=== PATIENT | male | born 1935 | race Caucasian/White ===

== ENCOUNTER 2018-07-29 10:59 | Emergency (ER) | payer MEDICARE, OTHER, SELFPAY ==
--- NOTE | 2018-07-29 11:05 | ED.SOB ---
HPI - SOB/Dyspnea <Emi Gibson PA-C - Last Filed: 07/29/18 19:42> General Chief Complaint: Shortness of Breath/Dyspnea Stated Complaint: Congestion/Wheezing Time Seen by Provider: 07/29/18 11:02 Source: patient Mode of arrival: ambulatory Limitations: no limitations History of Present Illness This 83-year-old male comes to ED secondary to cough and ?raspy breathing?. He states that he is here visiting from [place], and his daughter has had a cold. He thinks that he caught this, for the last 3 days he has had cough, chest congestion, and ?raspy breathing ?. He states that he has had ongoing nasal congestion and postnasal drip which he attributes to his allergies being worse in this climate as he has had that for several weeks while visiting. He denies any fevers. He denies any new chest pain. He states he always feels short of breath but this is completely unchanged from baseline. He denies any increased swelling in his extremities (has some at baseline and states that he takes Lasix as needed, last a couple of days ago). He denies any new pain in his extremities. He denies any abdominal pain, nausea, vomiting or other new complaints on systems review. He has an extensive cardiac history and states ?I did not want to get into this? but was flown to another ED in [place] on Friday night due to anginal pain and was evaluated. He states he took his nitroglycerin and it resolved. He has not had pain since then. Related Data Home Medications Medication Instructions Recorded Confirmed aspirin 325 mg PO QDAY #0 09/28/15 carvedilol [Coreg] 6.25 mg PO BID #0 09/28/15 clopidogrel [Plavix] 75 mg PO QDAY #0 tab 09/28/15 diclofenac sodium [Solaraze] 1 jose de jesus TOPICAL PRN PRN #0 09/28/15 famotidine [Pepcid] 20 mg PO QDAYP PRN #0 tab 09/28/15 losartan 50 mg PO QPM #0 09/28/15 simvastatin 20 mg PO QPM #0 09/28/15 sotalol [Sotalol AF] 80 mg PO BID #0 09/28/15 fluticasone propionate [Flonase 1 spray INTRANASAL QPM #0 07/13/17 Allergy Relief] isosorbide mononitrate 30 mg PO QPM #0 09/05/16 nitroglycerin [Nitrostat] 0.4 mg SUBLINGUAL PRN PRN #0 09/05/16 Previous Rx's Medication Instructions Recorded furosemide [Lasix] 20 mg PO QDAY 3 Days #0 tab 09/05/16 albuterol sulfate 2 puff INHALATION Q2-4H #8.5 gram 07/29/18 Allergies Allergy/AdvReac Type Severity Reaction Status Date / Time ofloxacin [From FLOXIN] AdvReac Severe TENDON Unverified 06/04/17 12:55 DAMAGE. 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 HEAD: No sinus TTP. EYES: PERRL, EOMI. ORAL CAVITY: Normal oropharynx. THROAT: No erythema or exudate, PND noted NECK/THYROID: Neck supple, full range of motion, no cervical lymphadenopathy. LUNGS: Coarse breath sounds with generalized wheezes and increased upper airway noise, no crackles, rare cough on exam HEART: RRR without murmur, nl S1, S2, no S3 or S4. ABDOMEN: Soft, nontender, nondistended, +bowel sounds x4 quadrants EXTREMITIES: Mild symmetric lower extremity pitting, no calf tenderness Initial Vital Signs Initial Vital Signs: Vital Signs Temperature 97.4 F L 07/29/18 11:07 Pulse Rate 54 L 07/29/18 11:07 Respiratory Rate 24 07/29/18 11:07 Blood Pressure 134/68 07/29/18 11:07 Pulse Oximetry 94 07/29/18 11:07 <Mary Mccarthy MD - Last Filed: 07/29/18 20:10> Initial Vital Signs Initial Vital Signs: Vital Signs Temperature 97.4 F L 07/29/18 11:07 Pulse Rate 54 L 07/29/18 11:07 Respiratory Rate 24 07/29/18 11:07 Blood Pressure 134/68 07/29/18 11:07 Pulse Oximetry 94 07/29/18 11:07 Course <Emi Gibson PA-C - Last Filed: 07/29/18 19:42> Additional Information: Patient appears quite well today on exam, walked in without difficulty. This appears to have started well after his visit for an episode of angina on Friday, and he has had typical cold an allergy symptoms with congestion, postnasal drip, and now with new cough after being exposed. Explained I suspect viral upper respiratory infection on top of his already symptomatic allergy, and probably has some mild CHF as well as he does not take his furosemide daily. I asked him to take 2 tablets today in case this is contributing, as well as treating for reactive airways since he had some improvement after nebulizer treatment here. Also start antihistamine in addition to Flonase. He agreed to return if any acutely worsening symptoms, otherwise will return home tonight and agrees to follow up with his PCP in the next day or 2. Reviewed findings with attending Dr. Mccarthy who is agreeable with plan Orders Ordered: ED Orders 07/29/18 11:13 XR chest 2V Stat 07/29/18 11:14 Consult to Respiratory Therapy Evaluate & Treat 07/29/18 11:43 B Type Natriuretic Peptide Stat Complete Blood Count AUTO DIFF Stat Comprehensive Metabolic Panel Stat Discontinued Medications Albuterol (Ventolin) 2.5 mg INH NOW ONE Stop: 07/29/18 11:29 Last Admin: 07/29/18 11:33 Dose: 2.5 mg Albuterol/Ipratropium (Duoneb) 3 ml INH NOW ONE Stop: 07/29/18 11:29 Last Admin: 07/29/18 11:33 Dose: 3 ml Vital Signs - 8 hr 07/29/18 13:09 Pulse Rate 22 L Respiratory Rate 17 Blood Pressure 132/72 Pulse Oximetry 96 <Mary Mccarthy MD - Last Filed: 07/29/18 20:10> Orders Ordered: ED Orders 07/29/18 11:13 XR chest 2V Stat 07/29/18 11:14 Consult to Respiratory Therapy Evaluate & Treat 07/29/18 11:43 B Type Natriuretic Peptide Stat Complete Blood Count AUTO DIFF Stat Comprehensive Metabolic Panel Stat Discontinued Medications Albuterol (Ventolin) 2.5 mg INH NOW ONE Stop: 07/29/18 11:29 Last Admin: 07/29/18 11:33 Dose: 2.5 mg Albuterol/Ipratropium (Duoneb) 3 ml INH NOW ONE Stop: 07/29/18 11:29 Last Admin: 07/29/18 11:33 Dose: 3 ml Vital Signs - 8 hr 07/29/18 13:09 Pulse Rate 22 L Respiratory Rate 17 Blood Pressure 132/72 Pulse Oximetry 96 MDM - SOB/Dyspnea <Emi Gibson PA-C - Last Filed: 07/29/18 19:42> Lab Data Result diagrams: 07/29/18 11:43 07/29/18 11:43 Lab Results 07/29/18 07/29/18 Range/Units 11:43 11:43 WBC 5.1 (4.5-11.0) X10^3/uL RBC 4.10 L (4.5-5.9) X10^6/uL Hgb 13.4 L (13.5-17.5) g/dL Hct 40.7 L (41-53) % MCV 99.2 (80-100) fL MCH 32.6 (26-34) PG MCHC 32.9 (30-36) % RDW 15.1 H (11.6-14.8) % Plt Count 132 L (150-400) X10^3/uL Neut % (Auto) 60.8 (50-75) % Lymph % (Auto) 22.3 L (25-40) % [place] % (Auto) 11.1 (3-14) % Eos % (Auto) 5.1 H (2-4) % Baso % (Auto) 0.7 (0-2) % Neut # (Auto) 3100 (9305-8724) /uL Lymph # (Auto) 1100 (5376-0016) /uL [place] # (Auto) 600 (0-900) /uL Eos # (Auto) 300 (0-450) /uL Baso # (Auto) 0 (0-100) /uL Sodium 141 (137-145) mmol/L Potassium 4.3 (3.4-5.1) mmol/L Chloride 104 (98-107) mmol/L Carbon Dioxide 28 (22-32) mmol/L BUN 17 (9-20) mg/dL Creatinine 0.90 (0.66-1.25) mg/dL Estimated GFR > 60.0 (>60) mL/min BUN/Creatinine Ratio 18.9 (6-22) Glucose 97 (80-110) mg/dL Calcium 9.2 (8.4-10.2) mg/dL Total Bilirubin 0.9 (0.2-1.3) mg/dL AST 43 (17-59) IU/L ALT 41 (21-72) IU/L Alkaline Phosphatase 96 (38-126) U/L B-Natriuretic Peptide 507 H (<100) Total Protein 7.6 (6.3-8.2) g/dL Albumin 4.2 (3.5-5.0) g/dL Globulin 3.4 (1.7-4.1) g/dL Albumin/Globulin Ratio 1.2 (1.0-2.8) Imaging Data Chest x-ray: Radiologist's impression: [address] [address] XRay Report Signed Patient: Yuri Kennedy RMR#: [id number] : 6Acct:[id number] Age/Sex: 83 / MDate of Service: 07/29/18 Loc: ED Accession Number: [id number] Procedure: XR chest 2V Ordering Provider: Emi Gibson P.A-C PROCEDURE: XR CHEST 2V INDICATIONS: wheezing, cough TECHNIQUE: 2 views of the chest were acquired. [facility]. FINDINGS: Surgical changes and devices: Pacemaking device and leads in normal position, prior CABG is likely present in this patient given the pattern of surgical clips and sternotomy wires.. Lungs and pleura: Lungs are mildly edematous. No pleural effusions or pneumothorax. Mediastinum: Mediastinal contours are normal. Heart size is at the upper limits of normal. Bones and chest wall: No suspicious bony abnormalities. Soft tissues appear unremarkable. IMPRESSION: Suspect acute exacerbation of mild chronic CHF. Prior CABG, cardiac pacemaking device and dual chamber leads normal. Dictated by: Flo De La Torre M.D. on 07/29/2018 at 11:41 Approved by: Flo De La Torre M.D. on 07/29/2018 at 11:42 <Mary Mccarthy MD - Last Filed: 07/29/18 20:10> Lab Data Lab Results 07/29/18 07/29/18 Range/Units 11:43 11:43 WBC 5.1 (4.5-11.0) X10^3/uL RBC 4.10 L (4.5-5.9) X10^6/uL Hgb 13.4 L (13.5-17.5) g/dL Hct 40.7 L (41-53) % MCV 99.2 (80-100) fL MCH 32.6 (26-34) PG MCHC 32.9 (30-36) % RDW 15.1 H (11.6-14.8) % Plt Count 132 L (150-400) X10^3/uL Neut % (Auto) 60.8 (50-75) % Lymph % (Auto) 22.3 L (25-40) % [place] % (Auto) 11.1 (3-14) % Eos % (Auto) 5.1 H (2-4) % Baso % (Auto) 0.7 (0-2) % Neut # (Auto) 3100 (3388-7306) /uL Lymph # (Auto) 1100 (7592-7705) /uL [place] # (Auto) 600 (0-900) /uL Eos # (Auto) 300 (0-450) /uL Baso # (Auto) 0 (0-100) /uL Sodium 141 (137-145) mmol/L Potassium 4.3 (3.4-5.1) mmol/L Chloride 104 (98-107) mmol/L Carbon Dioxide 28 (22-32) mmol/L BUN 17 (9-20) mg/dL Creatinine 0.90 (0.66-1.25) mg/dL Estimated GFR > 60.0 (>60) mL/min BUN/Creatinine Ratio 18.9 (6-22) Glucose 97 (80-110) mg/dL Calcium 9.2 (8.4-10.2) mg/dL Total Bilirubin 0.9 (0.2-1.3) mg/dL AST 43 (17-59) IU/L ALT 41 (21-72) IU/L Alkaline Phosphatase 96 (38-126) U/L B-Natriuretic Peptide 507 H (<100) Total Protein 7.6 (6.3-8.2) g/dL Albumin 4.2 (3.5-5.0) g/dL Globulin 3.4 (1.7-4.1) g/dL Albumin/Globulin Ratio 1.2 (1.0-2.8) Discharge Plan Departure Patient Disposition: Home Clinical Impression: Environmental allergies Upper respiratory infection Qualifiers: URI type: unspecified viral URI Qualified Code(s): J06.9 - Acute upper respiratory infection, unspecified Congestive heart failure Qualifiers: Heart failure type: unspecified Heart failure chronicity: chronic Qualified Code(s): I50.9 - Heart failure, unspecified Mild reactive airways disease Qualifiers: Asthma persistence: intermittent Asthma complication type: with acute exacerbation Qualified Code(s): J45.21 - Mild intermittent asthma with (acute) exacerbation Discharge Date/Time: 07/29/18 13:10 Interventions: ED Discharge Assessment Last Done: 07/29/18 13:09 Instructions: DI for Viral Upper Respiratory Infection -- Adult, DI for Reactive Airway Disease-Adult Activity Restrictions/Additional Instructions: I suspect that your cough and wheeze are related to a cold type virus since your daughter was sick prior to onset of your symptoms. This is likely exacerbated by your ongoing allergies as well. I have sent a prescription for inhaler like the medicine we gave you in the breathing treatment here for you to use as needed, to [facility]. Please use that as often as needed for cough or wheeze. Please continue Mucinex. Continue your Flonase. You can also add [id number] Claritin 10 mg or Zyrtec 10 mg once daily to help with the postnasal drainage. In addition, you likely have a little bit of congestive heart failure that could be exacerbating your symptoms. Please take 2 of your furosemide tablet as soon as possible today, then continue 1 tablet daily and make sure you see your PCP in the next day or 2 after you get home for recheck. Please return here if you have any new or acutely worsening symptoms while you are still in town. Prescriptions: New albuterol sulfate 90 mcg/actuation HFA aerosol inhaler 2 puff INHALATION Q2-4H Qty: 8.5 RF: 0 No Action carvedilol [Coreg] 6.25 MG tablet 6.25 mg PO BID Qty: 0 RF: 0 losartan 50 MG tablet 50 mg PO QPM Qty: 0 RF: 0 sotalol [Sotalol AF] 80 MG tablet 80 mg PO BID Qty: 0 RF: 0 clopidogrel [Plavix] 75 MG tablet 75 mg PO QDAY Qty: 0 RF: 0 simvastatin 20 MG tablet 20 mg PO QPM Qty: 0 RF: 0 famotidine [Pepcid] 20 MG tablet 20 mg PO QDAYP PRNQty: 0 RF: 0 aspirin 325 MG tablet,delayed release (DR/EC) 325 mg PO QDAY Qty: 0 RF: 0 diclofenac sodium [Solaraze] 3 % gel 1 jose de jesus Topical PRN PRNQty: 0 RF: 0 isosorbide mononitrate 30 MG tablet extended release 24 hr 30 mg PO QPM Qty: 0 RF: 0 nitroglycerin [Nitrostat] 0.4 MG tablet, sublingual 0.4 mg Sublingual PRN PRNQty: 0 RF: 0 fluticasone propionate [Flonase Allergy Relief] 9.9 ML spray,suspension 1 spray Intranasal QPM Qty: 0 RF: 0 furosemide [Lasix] 20 MG tablet 20 mg PO QDAY 3 Days Qty: 0 RF: 0 Referrals: Giorgio Cote [Other]
[2018-07-29 11:07] VITALS: BP 134/68; PULSE 54; RESP 24; TEMP 36.3; O2SAT 94
--- NOTE | 2018-07-29 11:13 | DI.RAD.S_ITS ---
PROCEDURE: XR CHEST 2V INDICATIONS: wheezing, cough TECHNIQUE: 2 views of the chest were acquired. COMPARISON: [facility], , CHEST 1 VIEW, 09/05/2016, 11:20. FINDINGS: Surgical changes and devices: Pacemaking device and leads in normal position, prior CABG is likely present in this patient given the pattern of surgical clips and sternotomy wires.. Lungs and pleura: Lungs are mildly edematous. No pleural effusions or pneumothorax. Mediastinum: Mediastinal contours are normal. Heart size is at the upper limits of normal. Bones and chest wall: No suspicious bony abnormalities. Soft tissues appear unremarkable. IMPRESSION: Suspect acute exacerbation of mild chronic CHF. Prior CABG, cardiac pacemaking device and dual chamber leads normal. Dictated by: Flo De La Torre M.D. on 07/29/2018 at 11:41 Approved by: Flo De La Torre M.D. on 07/29/2018 at 11:42
--- NOTE | 2018-07-29 11:18 | ED_ITS ---
HPI - SOB/Dyspnea <Emi Gibson PA-C - Last Filed: 07/29/18 19:42> General Chief Complaint: Shortness of Breath/Dyspnea Stated Complaint: Congestion/Wheezing Time Seen by Provider: 07/29/18 11:02 Source: patient Mode of arrival: ambulatory Limitations: no limitations History of Present Illness This 83-year-old male comes to ED secondary to cough and ?raspy breathing?. He states that he is here visiting from [place], and his daughter has had a cold. He thinks that he caught this, for the last 3 days he has had cough, chest congestion, and ?raspy breathing ?. He states that he has had ongoing nasal congestion and postnasal drip which he attributes to his allergies being worse in this climate as he has had that for several weeks while visiting. He denies any fevers. He denies any new chest pain. He states he always feels short of breath but this is completely unchanged from baseline. He denies any increased swelling in his extremities (has some at baseline and states that he takes Lasix as needed, last a couple of days ago). He denies any new pain in his extremities. He denies any abdominal pain, nausea, vomiting or other new complaints on systems review. He has an extensive cardiac history and states ?I did not want to get into this? but was flown to another ED in [place] on night due to anginal pain and was evaluated. He states he took his nitroglycerin and it resolved. He has not had pain since then. Related Data Home Medications Medication Instructions Recorded Confirmed aspirin 325 mg PO QDAY #0 09/28/15 carvedilol [Coreg] 6.25 mg PO BID #0 09/28/15 clopidogrel [Plavix] 75 mg PO QDAY #0 tab 09/28/15 diclofenac sodium [Solaraze] 1 jose de jesus TOPICAL PRN PRN #0 09/28/15 famotidine [Pepcid] 20 mg PO QDAYP PRN #0 tab 09/28/15 losartan 50 mg PO QPM #0 09/28/15 simvastatin 20 mg PO QPM #0 09/28/15 sotalol [Sotalol AF] 80 mg PO BID #0 09/28/15 fluticasone propionate [Flonase 1 spray INTRANASAL QPM #0 09/05/16 Allergy Relief] isosorbide mononitrate 30 mg PO QPM #0 09/05/16 nitroglycerin [Nitrostat] 0.4 mg SUBLINGUAL PRN PRN #0 09/05/16 Previous Rx's Medication Instructions Recorded furosemide [Lasix] 20 mg PO QDAY 3 Days #0 tab 09/05/16 albuterol sulfate 2 puff INHALATION Q2-4H #8.5 gram 07/29/18 Allergies Allergy/AdvReac Type Severity Reaction Status Date / Time ofloxacin [From FLOXIN] AdvReac Severe TENDON Unverified 06/04/17 12:55 DAMAGE. 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 HEAD: No sinus TTP. EYES: PERRL, EOMI. ORAL CAVITY: Normal oropharynx. THROAT: No erythema or exudate, PND noted NECK/THYROID: Neck supple, full range of motion, no cervical lymphadenopathy. LUNGS: Coarse breath sounds with generalized wheezes and increased upper airway noise, no crackles, rare cough on exam HEART: RRR without murmur, nl S1, S2, no S3 or S4. ABDOMEN: Soft, nontender, nondistended, +bowel sounds x4 quadrants EXTREMITIES: Mild symmetric lower extremity pitting, no calf tenderness Initial Vital Signs Initial Vital Signs: Vital Signs Temperature 97.4 F L 07/29/18 11:07 Pulse Rate 54 L 07/29/18 11:07 Respiratory Rate 24 07/29/18 11:07 Blood Pressure 134/68 07/29/18 11:07 Pulse Oximetry 94 07/29/18 11:07 <Mary Mccarthy MD - Last Filed: 07/29/18 20:10> Initial Vital Signs Initial Vital Signs: Vital Signs Temperature 97.4 F L 07/29/18 11:07 Pulse Rate 54 L 07/29/18 11:07 Respiratory Rate 24 07/29/18 11:07 Blood Pressure 134/68 07/29/18 11:07 Pulse Oximetry 94 07/29/18 11:07 Course <Emi Gibson PA-C - Last Filed: 07/29/18 19:42> Additional Information: Patient appears quite well today on exam, walked in without difficulty. This appears to have started well after his visit for an episode of angina on Friday, and he has had typical cold an allergy symptoms with congestion, postnasal drip, and now with new cough after being exposed. Explained I suspect viral upper respiratory infection on top of his already symptomatic allergy, and probably has some mild CHF as well as he does not take his furosemide daily. I asked him to take 2 tablets today in case this is contributing, as well as treating for reactive airways since he had some improvement after nebulizer treatment here. Also start antihistamine in addition to Flonase. He agreed to return if any acutely worsening symptoms, otherwise will return home tonight and agrees to follow up with his PCP in the next day or 2. Reviewed findings with attending Dr. Mccarthy who is agreeable with plan Orders Ordered: ED Orders 07/29/18 11:13 XR chest 2V Stat 07/29/18 11:14 Consult to Respiratory Therapy Evaluate & Treat 07/29/18 11:43 B Type Natriuretic Peptide Stat Complete Blood Count AUTO DIFF Stat Comprehensive Metabolic Panel Stat Discontinued Medications Albuterol (Ventolin) 2.5 mg INH NOW ONE Stop: 07/29/18 11:29 Last Admin: 07/29/18 11:33 Dose: 2.5 mg Albuterol/Ipratropium (Duoneb) 3 ml INH NOW ONE Stop: 07/29/18 11:29 Last Admin: 07/29/18 11:33 Dose: 3 ml Vital Signs - 8 hr 07/29/18 13:09 Pulse Rate 22 L Respiratory Rate 17 Blood Pressure 132/72 Pulse Oximetry 96 <Mary Mccarthy MD - Last Filed: 07/29/18 20:10> Orders Ordered: ED Orders 07/29/18 11:13 XR chest 2V Stat 07/29/18 11:14 Consult to Respiratory Therapy Evaluate & Treat 07/29/18 11:43 B Type Natriuretic Peptide Stat Complete Blood Count AUTO DIFF Stat Comprehensive Metabolic Panel Stat Discontinued Medications Albuterol (Ventolin) 2.5 mg INH NOW ONE Stop: 07/29/18 11:29 Last Admin: 07/29/18 11:33 Dose: 2.5 mg Albuterol/Ipratropium (Duoneb) 3 ml INH NOW ONE Stop: 07/29/18 11:29 Last Admin: 07/29/18 11:33 Dose: 3 ml Vital Signs - 8 hr 07/29/18 13:09 Pulse Rate 22 L Respiratory Rate 17 Blood Pressure 132/72 Pulse Oximetry 96 MDM - SOB/Dyspnea <Emi Gibson PA-C - Last Filed: 07/29/18 19:42> Lab Data Result diagrams: 07/29/18 11:43 07/29/18 11:43 Lab Results 07/29/18 07/29/18 Range/Units 11:43 11:43 WBC 5.1 (4.5-11.0) X10^3/uL RBC 4.10 L (4.5-5.9) X10^6/uL Hgb 13.4 L (13.5-17.5) g/dL Hct 40.7 L (41-53) % MCV 99.2 (80-100) fL MCH 32.6 (26-34) PG MCHC 32.9 (30-36) % RDW 15.1 H (11.6-14.8) % Plt Count 132 L (150-400) X10^3/uL Neut % (Auto) 60.8 (50-75) % Lymph % (Auto) 22.3 L (25-40) % [place] % (Auto) 11.1 (3-14) % Eos % (Auto) 5.1 H (2-4) % Baso % (Auto) 0.7 (0-2) % Neut # (Auto) 3100 (1418-0352) /uL Lymph # (Auto) 1100 (0832-7340) /uL [place] # (Auto) 600 (0-900) /uL Eos # (Auto) 300 (0-450) /uL Baso # (Auto) 0 (0-100) /uL Sodium 141 (137-145) mmol/L Potassium 4.3 (3.4-5.1) mmol/L Chloride 104 (98-107) mmol/L Carbon Dioxide 28 (22-32) mmol/L BUN 17 (9-20) mg/dL Creatinine 0.90 (0.66-1.25) mg/dL Estimated GFR > 60.0 (>60) mL/min BUN/Creatinine Ratio 18.9 (6-22) Glucose 97 (80-110) mg/dL Calcium 9.2 (8.4-10.2) mg/dL Total Bilirubin 0.9 (0.2-1.3) mg/dL AST 43 (17-59) IU/L ALT 41 (21-72) IU/L Alkaline Phosphatase 96 (38-126) U/L B-Natriuretic Peptide 507 H (<100) Total Protein 7.6 (6.3-8.2) g/dL Albumin 4.2 (3.5-5.0) g/dL Globulin 3.4 (1.7-4.1) g/dL Albumin/Globulin Ratio 1.2 (1.0-2.8) Imaging Data Chest x-ray: Radiologist's impression: [address] [address] XRay Report Signed Patient: Yuri Kennedy RMR#: [id number] : 6Acct:[id number] Age/Sex: 83 / MDate of Service: 07/29/18 Loc: ED Accession Number: [id number] Procedure: XR chest 2V Ordering Provider: Emi Gibson P.A-C PROCEDURE: XR CHEST 2V INDICATIONS: wheezing, cough TECHNIQUE: 2 views of the chest were acquired. COMPARISON: [facility], CR, CHEST 1 VIEW, 09/05/2016, 11:20. FINDINGS: Surgical changes and devices: Pacemaking device and leads in normal position, prior CABG is likely present in this patient given the pattern of surgical clips and sternotomy wires.. Lungs and pleura: Lungs are mildly edematous. No pleural effusions or pneumothorax. Mediastinum: Mediastinal contours are normal. Heart size is at the upper limits of normal. Bones and chest wall: No suspicious bony abnormalities. Soft tissues appear unremarkable. IMPRESSION: Suspect acute exacerbation of mild chronic CHF. Prior CABG, cardiac pacemaking device and dual chamber leads normal. Dictated by: Flo De La Torre M.D. on 07/29/2018 at 11:41 Approved by: Flo De La Torre M.D. on 07/29/2018 at 11:42 <Mary Mccarthy MD - Last Filed: 07/29/18 20:10> Lab Data Lab Results 07/29/18 07/29/18 Range/Units 11:43 11:43 WBC 5.1 (4.5-11.0) X10^3/uL RBC 4.10 L (4.5-5.9) X10^6/uL Hgb 13.4 L (13.5-17.5) g/dL Hct 40.7 L (41-53) % MCV 99.2 (80-100) fL MCH 32.6 (26-34) PG MCHC 32.9 (30-36) % RDW 15.1 H (11.6-14.8) % Plt Count 132 L (150-400) X10^3/uL Neut % (Auto) 60.8 (50-75) % Lymph % (Auto) 22.3 L (25-40) % [place] % (Auto) 11.1 (3-14) % Eos % (Auto) 5.1 H (2-4) % Baso % (Auto) 0.7 (0-2) % Neut # (Auto) 3100 (1410-1594) /uL Lymph # (Auto) 1100 (2357-6637) /uL [place] # (Auto) 600 (0-900) /uL Eos # (Auto) 300 (0-450) /uL Baso # (Auto) 0 (0-100) /uL Sodium 141 (137-145) mmol/L Potassium 4.3 (3.4-5.1) mmol/L Chloride 104 (98-107) mmol/L Carbon Dioxide 28 (22-32) mmol/L BUN 17 (9-20) mg/dL Creatinine 0.90 (0.66-1.25) mg/dL Estimated GFR > 60.0 (>60) mL/min BUN/Creatinine Ratio 18.9 (6-22) Glucose 97 (80-110) mg/dL Calcium 9.2 (8.4-10.2) mg/dL Total Bilirubin 0.9 (0.2-1.3) mg/dL AST 43 (17-59) IU/L ALT 41 (21-72) IU/L Alkaline Phosphatase 96 (38-126) U/L B-Natriuretic Peptide 507 H (<100) Total Protein 7.6 (6.3-8.2) g/dL Albumin 4.2 (3.5-5.0) g/dL Globulin 3.4 (1.7-4.1) g/dL Albumin/Globulin Ratio 1.2 (1.0-2.8) Discharge Plan Departure Patient Disposition: Home Clinical Impression: Environmental allergies Upper respiratory infection Qualifiers: URI type: unspecified viral URI Qualified Code(s): J06.9 - Acute upper respiratory infection, unspecified Congestive heart failure Qualifiers: Heart failure type: unspecified Heart failure chronicity: chronic Qualified Code(s): I50.9 - Heart failure, unspecified Mild reactive airways disease Qualifiers: Asthma persistence: intermittent Asthma complication type: with acute exacerbation Qualified Code(s): J45.21 - Mild intermittent asthma with (acute) exacerbation Discharge Date/Time: 07/29/18 13:10 Interventions: ED Discharge Assessment Last Done: 07/29/18 13:09 Instructions: DI for Viral Upper Respiratory Infection -- Adult, DI for Reactive Airway Disease-Adult Activity Restrictions/Additional Instructions: I suspect that your cough and wheeze are related to a cold type virus since your daughter was sick prior to onset of your symptoms. This is likely exacerbated by your ongoing allergies as well. I have sent a prescription for inhaler like the medicine we gave you in the breathing treatment here for you to use as needed, to [facility]. Please use that as often as needed for cough or wheeze. Please continue Mucinex. Continue your Flonase. You can also add [id number] Claritin 10 mg or Zyrtec 10 mg once daily to help with the postnasal drainage. In addition, you likely have a little bit of congestive heart failure that could be exacerbating your symptoms. Please take 2 of your furosemide tablet as soon as possible today, then continue 1 tablet daily and make sure you see your PCP in the next day or 2 after you get home for recheck. Please return here if you have any new or acutely worsening symptoms while you are still in town. Prescriptions: New albuterol sulfate 90 mcg/actuation HFA aerosol inhaler 2 puff INHALATION Q2-4H Qty: 8.5 RF: 0 No Action carvedilol [Coreg] 6.25 MG tablet 6.25 mg PO BID Qty: 0 RF: 0 losartan 50 MG tablet 50 mg PO QPM Qty: 0 RF: 0 sotalol [Sotalol AF] 80 MG tablet 80 mg PO BID Qty: 0 RF: 0 clopidogrel [Plavix] 75 MG tablet 75 mg PO QDAY Qty: 0 RF: 0 simvastatin 20 MG tablet 20 mg PO QPM Qty: 0 RF: 0 famotidine [Pepcid] 20 MG tablet 20 mg PO QDAYP PRNQty: 0 RF: 0 aspirin 325 MG tablet,delayed release (DR/EC) 325 mg PO QDAY Qty: 0 RF: 0 diclofenac sodium [Solaraze] 3 % gel 1 jose de jesus Topical PRN PRNQty: 0 RF: 0 isosorbide mononitrate 30 MG tablet extended release 24 hr 30 mg PO QPM Qty: 0 RF: 0 nitroglycerin [Nitrostat] 0.4 MG tablet, sublingual 0.4 mg Sublingual PRN PRNQty: 0 RF: 0 fluticasone propionate [Flonase Allergy Relief] 9.9 ML spray,suspension 1 spray Intranasal QPM Qty: 0 RF: 0 furosemide [Lasix] 20 MG tablet 20 mg PO QDAY 3 Days Qty: 0 RF: 0 Referrals: Giorgio Cote [Other]
[2018-07-29 11:25] VITALS: PULSE 51; RESP 16; O2SAT 97
[2018-07-29 11:33] VITALS: PULSE 50; RESP 16; O2SAT 98
[2018-07-29] MEDS: ALBUTEROL/IPRATROPIUM 3 ML AMPUL INH (11:33)
[2018-07-29] MEDS: ALBUTEROL 2.5 MG/3 ML NEB (ADULT) INH (11:33)
[2018-07-29 11:52] LABS: Add Manual Diff / Slide Review NO; Basophils Absolute Auto 0 /uL (0-100); Basophils Percent Auto 0.7 % (0-2); Eosinophils Absolute Auto 300 /uL (0-450); Eosinophils Percent Auto 5.1 % (2-4); Hematocrit 40.7 % (41-53); Hemoglobin 13.4 g/dL (13.5-17.5); Lymphocytes Absolute Auto 1100 /uL (1100-4500); Lymphocytes Percent Auto 22.3 % (25-40); Mean Corpuscular HGB Conc 32.9 % (30-36); Mean Corpuscular Hemoglobin 32.6 PG (26-34); Mean Corpuscular Volume 99.2 fL (80-100); Monocytes Absolute Auto 600 /uL (0-900); Monocytes Percent Auto 11.1 % (3-14); Neutrophils Absolute Auto 3100 /uL (1500-7000); Neutrophils Percent Auto 60.8 % (50-75); Platelet Count 132 X10^3/uL (150-400); Red Cell Distribution Width 15.1 % (11.6-14.8); White Blood Cell Count 5.1 X10^3/uL (4.5-11.0)
[2018-07-29 12:03] LABS: Alanine Aminotransferase 41 IU/L (21-72); Albumin 4.2 g/dL (3.5-5.0); Albumin Globulin Ratio 1.2 (1.0-2.8); Alkaline Phosphatase 96 U/L (38-126); Aspartate Aminotransferase 43 IU/L (17-59); BUN Creatinine Ratio 18.9 (6-22); Bilirubin Total 0.9 mg/dL (0.2-1.3); Blood Urea Nitrogen 17 mg/dL (9-20); Calcium 9.2 mg/dL (8.4-10.2); Carbon Dioxide 28 mmol/L (22-32); Chloride 104 mmol/L (98-107); Estimated Glomerular Filt Rate > 60.0 mL/min (>60); Globulin 3.4 g/dL (1.7-4.1); Glucose 97 mg/dL (80-110); HEMOLYSIS < 15 (0-50); Potassium 4.3 mmol/L (3.4-5.1); Sodium 141 mmol/L (137-145); Total Protein 7.6 g/dL (6.3-8.2)
[2018-07-29 12:04] VITALS: BP 132/63; PULSE 56; RESP 17; O2SAT 99
[2018-07-29 12:13] LABS: B Type Natriuretic Peptide 507 (<100)
[2018-07-29 13:09] VITALS: BP 132/72; PULSE 22; RESP 17; O2SAT 96
== END 2018-07-29 13:10 | disposition home or self-care (01) ==
PROVIDERS: Emergency Provider Internal Medicine
DX: I50.9 Heart failure, unspecified (principal); J45.21 Mild intermittent asthma with (acute) exacerbation; Z91.09 Other allergy status, other than to drugs and biological substances; Z95.1 Presence of aortocoronary bypass graft; Z95.0 Presence of cardiac pacemaker
CPT/HCPCS: 36415; 71046; 80053; 83880; 85025; 94640; 99282; 99284; J7613

== ENCOUNTER 2018-09-13 09:02 | Emergency (ER) | payer MEDICARE, OTHER, SELFPAY ==
[2018-09-13 09:17] VITALS: BP 123/77; PULSE 58; RESP 16; TEMP 36.3; O2SAT 96; BMI 29.7
--- NOTE | 2018-09-13 09:22 | DI.RAD.S_ITS ---
PROCEDURE: XR ACUTE ABDOMEN SERIES INDICATIONS: Abdominal pain, LLQ TECHNIQUE: One view chest and two views of the abdomen were acquired. COMPARISON: [facility], CR, XR CHEST 2V, 07/29/2018, 11:24. FINDINGS: Surgical changes and devices: Patient is status post median sternotomy. Cardiac pacer is unchanged. Chest: Lungs are clear. Heart size is normal. No pleural effusions. No pneumoperitoneum. Abdomen: Bowel gas pattern is normal. No suspicious calcifications. Visualized solid organ contours appear normal. Bones: No suspicious bony lesions. IMPRESSION: No acute cardiopulmonary findings. Dictated by: Maryellen Moreau M.D. on 09/13/2018 at 8:51 Approved by: Maryellen Moreau M.D. on 09/13/2018 at 8:51
[2018-09-13] MEDS: SODIUM CHLORIDE 0.9% 1,000 ML 150 ML IV (09:35)
[2018-09-13 09:36] LABS: Add Manual Diff / Slide Review NO; Basophils Absolute Auto 100 /uL (0-100); Basophils Percent Auto 0.8 % (0-2); Eosinophils Absolute Auto 200 /uL (0-450); Hemoglobin 13.2 g/dL (13.5-17.5); Lymphocytes Absolute Auto 1700 /uL (1100-4500); Lymphocytes Percent Auto 22.5 % (25-40); Mean Corpuscular Hemoglobin 32.6 PG (26-34); Mean Corpuscular Volume 98.7 fL (80-100); Monocytes Absolute Auto 700 /uL (0-900); Monocytes Percent Auto 9.5 % (3-14); Neutrophils Absolute Auto 4800 /uL (1500-7000); Neutrophils Percent Auto 64.2 % (50-75); Platelet Count 141 X10^3/uL (150-400); Red Blood Cell Count 4.05 X10^6/uL (4.5-5.9); Red Cell Distribution Width 15.6 % (11.6-14.8); White Blood Cell Count 7.5 X10^3/uL (4.5-11.0)
--- NOTE | 2018-09-13 09:37 | ED.ABDPAIN ---
HPI - Abdominal Pain General Chief Complaint: Abdominal Pain Stated Complaint: Abd pain Lt side Time Seen by Provider: 09/13/18 09:09 Source: patient and family Mode of arrival: ambulatory Limitations: no limitations History of Present Illness HPI narrative: 83-year-old male nonsmoker with cardiac history presents with left lower quadrant pain that reminds him of diverticulitis. It started off yesterday with generalized abdominal discomfort and tonight is a more persistent left lower quadrant pain. He denies any radiation. He states it is worse when he moves and improves with rest. He denies fever, chills nor nausea or vomiting. He denies any injury. MD complaint: abdominal pain Onset (ago): day(s) Pain Consistency: constant Location: LLQ Severity: moderate Quality: cramping and aching Radiation: none Migration to: no migration Relieving factors: rest Exacerbating factors: movement Associated symptoms: denies other symptoms Related Data Home Medications Medication Instructions Recorded Confirmed aspirin 325 mg PO QDAY #0 09/28/15 carvedilol [Coreg] 6.25 mg PO BID #0 09/28/15 clopidogrel [Plavix] 75 mg PO QDAY #0 tab 09/28/15 diclofenac sodium [Solaraze] 1 jose de jesus TOPICAL PRN PRN #0 09/28/15 famotidine [Pepcid] 20 mg PO QDAYP PRN #0 tab 09/28/15 losartan 50 mg PO QPM #0 09/28/15 simvastatin 20 mg PO QPM #0 09/28/15 sotalol [Sotalol AF] 80 mg PO BID #0 09/28/15 fluticasone propionate [Flonase 1 spray INTRANASAL QPM #0 09/05/16 Allergy Relief] isosorbide mononitrate 30 mg PO QPM #0 09/05/16 nitroglycerin [Nitrostat] 0.4 mg SUBLINGUAL PRN PRN #0 09/05/16 Previous Rx's Medication Instructions Recorded furosemide [Lasix] 20 mg PO QDAY 3 Days #0 tab 09/05/16 albuterol sulfate 2 puff INHALATION Q2-4H #8.5 gram 07/29/18 ciprofloxacin HCl 500 mg PO Q12H #20 tab 09/13/18 hydrocodone-acetaminophen 1 tab PO Q4-6H PRN #10 tab 09/13/18 metronidazole [Flagyl] 500 mg PO TID #30 tab 09/13/18 ondansetron HCl [Zofran] 4 mg PO Q6-8H PRN #20 tab 09/13/18 Allergies Allergy/AdvReac Type Severity Reaction Status Date / Time ofloxacin [From FLOXIN] AdvReac Severe TENDON Verified 09/13/18 09:17 DAMAGE. Review of Systems Constitutional Denies chills, Denies fever(s), Denies lethargy and Denies weakness Eyes Denies change in vision, Denies eye discharge, Denies irritation and Denies loss of vision ENT Ears, Nose, Mouth, and Throat: Denies change in voice, Denies neck pain and Denies sore throat Cardiovascular Denies chest pain, Denies irregular heart rhythm, Denies lightheadedness, Denies palpitations, Denies dyspnea, Denies dyspnea on exertion and Denies orthopnea Respiratory Denies cough, Denies dyspnea, Denies dyspnea on exertion and Denies wheezing Gastrointestinal Gastrointestinal: Reports abdominal pain, Denies change in bowel habits, Denies diarrhea, Denies nausea and Denies vomiting Genitourinary Denies hematuria, Denies flank pain, Denies urinary incontinence and Denies urinary urgency Musculoskeletal Denies neck pain Integumentary/Breasts Denies pruritus, Denies erythema, Denies rash and Denies wounds Neurologic Denies confusion, Denies loss of vision and Denies weakness Psychiatric Denies anxiety, Denies confusion, Denies depression, Denies homicidal ideation and Denies suicidal ideation Endocrine Denies palpitations Hematologic/Lymphatic Denies easy bruising Allergic/Immunologic Denies wheezing PFSH Medical History CAD (coronary artery disease) (Chronic) CHF (congestive heart failure) (Chronic) H/O: HTN (hypertension) (Chronic) Hyperlipidemia (Chronic) Pollen allergies (Chronic) Surgical History History of heart artery stent (Resolved) 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 Normocephalic. No temporal or scalp tenderness. EYES: Pupils equal round and reactive. Extraocular motions intact. No scleral icterus. No injection or drainage. ENT: Nose without bleeding, purulent drainage or septal hematoma. Throat without erythema, tonsillar hypertrophy or exudate. Uvula midline. Airway patent. NECK: Trachea midline. No JVD or lymphadenopathy. Supple, nontender, no meningeal signs. CARDIOVASCULAR: Regular rate and rhythm without murmurs, gallops, or rubs. RESPIRATORY: Clear to auscultation. Breath sounds equal bilaterally. No wheezes, rales, or rhonchi. GASTROINTESTINAL: Abdomen soft, tender in the left lower quadrant, nondistended. No hepato-splenomegaly, or palpable masses. No guarding. EXTREMITIES: No clubbing, cyanosis, or edema. No joint tenderness, effusion, or edema noted. BACK: Nontender without deformity or crepitance. No flank tenderness. NEURO: AOx3. SKIN: No rash or erythema. Initial Vital Signs Initial Vital Signs: Vital Signs Temperature 97.3 F L 09/13/18 09:17 Pulse Rate 58 L 09/13/18 09:17 Respiratory Rate 16 09/13/18 09:17 Blood Pressure 123/77 09/13/18 09:17 Pulse Oximetry 96 09/13/18 09:17 Course Orders Ordered: ED Orders 09/13/18 09:15 Urine Culture Stat Urine Microscopic Stat 09/13/18 09:22 XR acute abdomen series Stat 09/13/18 09:23 Complete Blood Count AUTO DIFF Stat Comprehensive Metabolic Panel Stat Lipase Stat 09/13/18 10:08 CT abdomen pelvis w con Stat Discontinued Medications Sodium Chloride (Normal Saline 0.9%) 1,000 mls @ 150 mls/hr IV CONT SERGE Last Infusion: 09/13/18 12:06 Dose: 0 mls/hr Admin: 09/13/18 09:35 Dose: 150 mls/hr Consultations Consultation #1: discussion with urology at regarding UTI in presence of 6mm Right Sided UVJ. Given lack of R sided symptoms, absence of systemic findings, and no hydro ureter or hydronephrosis on imaging this is unlikely to be playing a specific role in today's presentation. Urology and I sure the opinion that a appropriate return precautions are indicated in this patient but no urologic procedure or intervention is indicated at this time Vital Signs - 8 hr 09/13/18 09:17 09/13/18 09:55 09/13/18 10:57 Temperature 97.3 F L Pulse Rate 58 L 51 L 50 L Respiratory Rate 16 14 13 Blood Pressure 123/77 Blood Pressure [Right Arm] 111/60 106/61 Pulse Oximetry 96 93 92 09/13/18 11:52 Temperature Pulse Rate 50 L Respiratory Rate 13 Blood Pressure Blood Pressure [Right Arm] 121/58 L Pulse Oximetry 95 MDM - Abdominal Pain Lab Data Result diagrams: 09/13/18 09:23 09/13/18 09:23 Lab Results 09/13/18 09/13/18 09/13/18 Range/Units 09:15 09:23 09:23 WBC 7.5 (4.5-11.0) X10^3/uL RBC 4.05 L (4.5-5.9) X10^6/uL Hgb 13.2 L (13.5-17.5) g/dL Hct 40.0 L (41-53) % MCV 98.7 (80-100) fL MCH 32.6 (26-34) PG MCHC 33.0 (30-36) % RDW 15.6 H (11.6-14.8) % Plt Count 141 L (150-400) X10^3/uL Neut % (Auto) 64.2 (50-75) % Lymph % (Auto) 22.5 L (25-40) % Tyrrell % (Auto) 9.5 (3-14) % Eos % (Auto) 3.0 (2-4) % Baso % (Auto) 0.8 (0-2) % Neut # (Auto) 4800 (3794-1998) /uL Lymph # (Auto) 1700 (5753-2246) /uL Tyrrell # (Auto) 700 (0-900) /uL Eos # (Auto) 200 (0-450) /uL Baso # (Auto) 100 (0-100) /uL Sodium 138 (137-145) mmol/L Potassium 4.1 (3.4-5.1) mmol/L Chloride 104 (98-107) mmol/L Carbon Dioxide 26 (22-32) mmol/L BUN 19 (9-20) mg/dL Creatinine 0.70 (0.66-1.25) mg/dL Estimated GFR > 60.0 (>60) mL/min BUN/Creatinine Ratio 27.1 H (6-22) Glucose 107 (80-110) mg/dL Calcium 9.4 (8.4-10.2) mg/dL Total Bilirubin 1.4 H (0.2-1.3) mg/dL AST 26 (17-59) IU/L ALT 22 (21-72) IU/L Alkaline Phosphatase 99 (38-126) U/L Total Protein 7.6 (6.3-8.2) g/dL Albumin 4.2 (3.5-5.0) g/dL Globulin 3.4 (1.7-4.1) g/dL Albumin/Globulin Ratio 1.2 (1.0-2.8) Lipase 37 (23-300) U/L Urine RBC 1-5/hpf (0-5/HPF) Urine WBC 10-30/hpf H (0-5/HPF) Ur Squamous Epith Cells 1-5 /hpf (0-5/HPF) Amorphous Sediment 1+ Urine Bacteria Moderate (10-30) H (None) Ur Culture Indicated? Specimen cultured Point of care testing: Urine Dip Bedside Urine Glucose Negative Bedside Urine Bilirubin + 1 Bedside Urine Ketone - Negative Urine Specific [place] 1.020 Bedside Urine Occult Blood +/- Bedside Urine pH 6.0 Bedside Urine Protein + 30 Bedside Urine Urobilinogen +/- 1mg Bedside Urine Nitrite - Negative Bedside Urine Leukocytes + 70 Esterase Imaging Data Abdominal x-ray: Radiologist's impression: [address] [address] XRay Report Signed Patient: Yuri Kennedy RMR#: [id number] : 6Acct:[id number] Age/Sex: 83 / MDate of Service: 09/13/18 Loc: ED Accession Number: [id number] Procedure: XR acute abdomen series Ordering Provider: Aj Baldwin D.O. PROCEDURE: XR ACUTE ABDOMEN SERIES INDICATIONS: Abdominal pain, LLQ TECHNIQUE: One view chest and two views of the abdomen were acquired. COMPARISON: [facility], CR, XR CHEST 2V, 07/29/2018, 11:24. FINDINGS: Surgical changes and devices: Patient is status post median sternotomy. Cardiac pacer is unchanged. Chest: Lungs are clear. Heart size is normal. No pleural effusions. No pneumoperitoneum. Abdomen: Bowel gas pattern is normal. No suspicious calcifications. Visualized solid organ contours appear normal. Bones: No suspicious bony lesions. IMPRESSION: No acute cardiopulmonary findings. Dictated by: Maryellen Moreau M.D. on 09/13/2018 at 8:51 Approved by: Maryellen Moreau M.D. on 09/13/2018 at 8:51 CT scan - abdomen: Radiologist's impression: [address] [address] [address] Scan Report Signed Patient: Yuri Kennedy RMR#: [id number] : 6Acct:[id number] Age/Sex: 83 / MDate of Service: 09/13/18 Loc: ED Accession Number: [id number] Procedure: CT abdomen pelvis w con Ordering Provider: Aj Baldwin D.O. PROCEDURE: CT ABDOMEN PELVIS W CON INDICATIONS: severe LLQ pain, UTI, stone? tics? TECHNIQUE: After the administration of intravenous contrast, 5 mm thick sections acquired from the diaphragm to the symphysis. 5 mm coronal and sagittal reformats were acquired. For radiation dose reduction, the following was used: automated exposure control, adjustment of mA and/or kV according to patient size. COMPARISON: None. FINDINGS: Image quality: Excellent. ABDOMEN: Lung bases: Platelike atelectasis is present at the right lung base. The lung bases are otherwise clear. The heart is mildly enlarged. No pericardial effusion. Heart size is normal. Solid organs: Liver is normal in size and enhancement. Gallbladder is unremarkable. Biliary system is non dilated. Pancreas enhances normally. Spleen is normal in size and enhancement. No adrenal nodules. Low-density cystic lesions are present within the right kidney suggesting the presence of simple renal cysts. Cortical scarring and calcification is present within the midpole of the right kidney suggesting prior infection or infarction. There are bilateral nonobstructing renal calculi. The largest stone on the right measures 4 mm in diameter. The largest stone on the left is in the lower pole and has a staghorn appearance and measures 1.4 cm in diameter. 2 other staghorn calculi are present within the left kidney greater the 1 cm diameter. Nonobstructing calculi are also present within the dilated left renal pelvis. The bilateral ureters are nondilated. A 6 mm calculus is present within the distal right ureter at the ureterovesicular junction (series 2, image 76). No left ureteral calculi visualized. Peritoneum and bowel: Bowel loops demonstrate normal wall thickness and caliber. There is a small gas filled duodenal diverticulum at the third portion of the duodenum. The appendix is thin walled and gas filled. Multiple small appendicoliths are also present within the appendix. There extensive sigmoid colon diverticula outpouchings. Focal pericolonic fat stranding is present within the superior aspect of the descending colon which may represent mild inflammatory changes. No free fluid or air. Nodes and vessels: No retroperitoneal or mesenteric adenopathy by size criteria. Dense atheromatous calcifications are present throughout the abdominal aorta. The lateral diameter of the abdominal aorta measures 3.2 cm in maximum diameter. Miscellaneous: No ventral hernias. PELVIS: Genitourinary: The bladder is partially fluid-filled. Multiple bladder diverticula are noted within the posterior bladder and along the lateral bell. No bladder calculi. Miscellaneous: No inguinal adenopathy. There is a small right and a moderate left fat-containing inguinal hernia. Bones: No suspicious bony lesions. No vertebral body compression fractures. IMPRESSION: 1. Bilateral nonobstructing nephrolithiasis. Multiple calculi within the left kidney has a staghorn appearance and measure greater than 1 cm diameter. 2. Mild to moderate left hydronephrosis and a markedly dilated left renal pelvis without hydroureter suggesting ureteropelvic obstruction. This does not appear to be secondary to an obstructing calculus within the pelvis. 3. Distal right ureterolithiasis at the ureterovesicular junction without right hydronephrosis or hydroureter. 4. Extensive sigmoid colon diverticulosis and findings suggestive of a early nonperforated acute diverticulitis. 5. Normal appendix. The findings were discussed with Dr. Baldwin at 9:49 AM on . 6. 3.2 cm diameter abdominal aortic aneurysm. Dictated by: Maryellen Moreau M.D. on 09/13/2018 at 9:37 Approved by: Maryellen Moreau M.D. on 09/13/2018 at 9:50 MDM Narrative Medical decision making narrative: Multiple etiologies for patient's symptoms considered including: [Diverticulitis is the most likely diagnosis given history, physical and imaging, kidney stone on the left considered but thought less likely given lack of hematuria and findings on imaging.] Patient's symptoms improved or duration of stay with above-stated therapies. Findings and discharge diagnosis discussed with patient/family followed by verbalization of understanding Return precautions discussed with patient/family whom verbalize understanding. Discharge Plan Departure Patient Disposition: Home Clinical Impression: Diverticulitis, Acute UTI Discharge Date/Time: 09/13/18 12:02 Interventions: ED Discharge Assessment Last Done: 09/13/18 12:02 Instructions: DI for Diverticulitis Activity Restrictions/Additional Instructions: *You have been diagnosed with [acute diverticulitis, urinary tract infection] *What to do: *Take medications as directed *Follow up with your primary care provider in 2-3 days, call for an appointment. Let them know you were seen in the Emergency Department and that we ask that you be seen in follow up *Return to ER if you should have any new, worsening or concerning symptoms, such as [fever, shaking chills, right flank pain, vomiting or other bothersome symptoms] Prescriptions: New hydrocodone-acetaminophen 5-325 mg tablet 1 tab PO Q4-6H PRN (Reason: pain) Qty: 10 RF: 0 ondansetron HCl [Zofran] 4 mg tablet 4 mg PO Q6-8H PRN (Reason: nausea and vomiting) Qty: 20 RF: 0 metronidazole [Flagyl] 500 mg tablet 500 mg PO TID Qty: 30 RF: 0 ciprofloxacin HCl 500 mg tablet 500 mg PO Q12H Qty: 20 RF: 0 No Action carvedilol [Coreg] 6.25 MG tablet 6.25 mg PO BID Qty: 0 RF: 0 losartan 50 MG tablet 50 mg PO QPM Qty: 0 RF: 0 sotalol [Sotalol AF] 80 MG tablet 80 mg PO BID Qty: 0 RF: 0 clopidogrel [Plavix] 75 MG tablet 75 mg PO QDAY Qty: 0 RF: 0 simvastatin 20 MG tablet 20 mg PO QPM Qty: 0 RF: 0 famotidine [Pepcid] 20 MG tablet 20 mg PO QDAYP PRNQty: 0 RF: 0 aspirin 325 MG tablet,delayed release (DR/EC) 325 mg PO QDAY Qty: 0 RF: 0 diclofenac sodium [Solaraze] 3 % gel 1 jose de jesus Topical PRN PRNQty: 0 RF: 0 isosorbide mononitrate 30 MG tablet extended release 24 hr 30 mg PO QPM Qty: 0 RF: 0 nitroglycerin [Nitrostat] 0.4 MG tablet, sublingual 0.4 mg Sublingual PRN PRNQty: 0 RF: 0 fluticasone propionate [Flonase Allergy Relief] 9.9 ML spray,suspension 1 spray Intranasal QPM Qty: 0 RF: 0 furosemide [Lasix] 20 MG tablet 20 mg PO QDAY 3 Days Qty: 0 RF: 0 albuterol sulfate 90 mcg/actuation HFA aerosol inhaler 2 puff INHALATION Q2-4H Qty: 8.5 RF: 0
--- NOTE | 2018-09-13 09:43 | ED_ITS ---
HPI - Abdominal Pain General Chief Complaint: Abdominal Pain Stated Complaint: Abd pain Lt side Time Seen by Provider: 09/13/18 09:09 Source: patient and family Mode of arrival: ambulatory Limitations: no limitations History of Present Illness HPI narrative: 83-year-old male nonsmoker with cardiac history presents with left lower quadrant pain that reminds him of diverticulitis. It started off yesterday with generalized abdominal discomfort and tonight is a more persistent left lower quadrant pain. He denies any radiation. He states it is worse when he moves and improves with rest. He denies fever, chills nor nausea or vomiting. He denies any injury. MD complaint: abdominal pain Onset (ago): day(s) Pain Consistency: constant Location: LLQ Severity: moderate Quality: cramping and aching Radiation: none Migration to: no migration Relieving factors: rest Exacerbating factors: movement Associated symptoms: denies other symptoms Related Data Home Medications Medication Instructions Recorded Confirmed aspirin 325 mg PO QDAY #0 09/28/15 carvedilol [Coreg] 6.25 mg PO BID #0 09/28/15 clopidogrel [Plavix] 75 mg PO QDAY #0 tab 09/28/15 diclofenac sodium [Solaraze] 1 jose de jesus TOPICAL PRN PRN #0 09/28/15 famotidine [Pepcid] 20 mg PO QDAYP PRN #0 tab 09/28/15 losartan 50 mg PO QPM #0 09/28/15 simvastatin 20 mg PO QPM #0 09/28/15 sotalol [Sotalol AF] 80 mg PO BID #0 09/28/15 fluticasone propionate [Flonase 1 spray INTRANASAL QPM #0 09/05/16 Allergy Relief] isosorbide mononitrate 30 mg PO QPM #0 09/05/16 nitroglycerin [Nitrostat] 0.4 mg SUBLINGUAL PRN PRN #0 09/05/16 Previous Rx's Medication Instructions Recorded furosemide [Lasix] 20 mg PO QDAY 3 Days #0 tab 09/05/16 albuterol sulfate 2 puff INHALATION Q2-4H #8.5 gram 07/29/18 ciprofloxacin HCl 500 mg PO Q12H #20 tab 09/13/18 hydrocodone-acetaminophen 1 tab PO Q4-6H PRN #10 tab 09/13/18 metronidazole [Flagyl] 500 mg PO TID #30 tab 09/13/18 ondansetron HCl [Zofran] 4 mg PO Q6-8H PRN #20 tab 09/13/18 Allergies Allergy/AdvReac Type Severity Reaction Status Date / Time ofloxacin [From FLOXIN] AdvReac Severe TENDON Verified 09/13/18 09:17 DAMAGE. Review of Systems Constitutional Denies chills, Denies fever(s), Denies lethargy and Denies weakness Eyes Denies change in vision, Denies eye discharge, Denies irritation and Denies loss of vision ENT Ears, Nose, Mouth, and Throat: Denies change in voice, Denies neck pain and Denies sore throat Cardiovascular Denies chest pain, Denies irregular heart rhythm, Denies lightheadedness, Denies palpitations, Denies dyspnea, Denies dyspnea on exertion and Denies orthopnea Respiratory Denies cough, Denies dyspnea, Denies dyspnea on exertion and Denies wheezing Gastrointestinal Gastrointestinal: Reports abdominal pain, Denies change in bowel habits, Denies diarrhea, Denies nausea and Denies vomiting Genitourinary Denies hematuria, Denies flank pain, Denies urinary incontinence and Denies urinary urgency Musculoskeletal Denies neck pain Integumentary/Breasts Denies pruritus, Denies erythema, Denies rash and Denies wounds Neurologic Denies confusion, Denies loss of vision and Denies weakness Psychiatric Denies anxiety, Denies confusion, Denies depression, Denies homicidal ideation and Denies suicidal ideation Endocrine Denies palpitations Hematologic/Lymphatic Denies easy bruising Allergic/Immunologic Denies wheezing PFSH Medical History CAD (coronary artery disease) (Chronic) CHF (congestive heart failure) (Chronic) H/O: HTN (hypertension) (Chronic) Hyperlipidemia (Chronic) Pollen allergies (Chronic) Surgical History History of heart artery stent (Resolved) 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 Normocephalic. No temporal or scalp tenderness. EYES: Pupils equal round and reactive. Extraocular motions intact. No scleral icterus. No injection or drainage. ENT: Nose without bleeding, purulent drainage or septal hematoma. Throat without erythema, tonsillar hypertrophy or exudate. Uvula midline. Airway patent. NECK: Trachea midline. No JVD or lymphadenopathy. Supple, nontender, no meningeal signs. CARDIOVASCULAR: Regular rate and rhythm without murmurs, gallops, or rubs. RESPIRATORY: Clear to auscultation. Breath sounds equal bilaterally. No wheezes, rales, or rhonchi. GASTROINTESTINAL: Abdomen soft, tender in the left lower quadrant, nondistended. No hepato-splenomegaly, or palpable masses. No guarding. EXTREMITIES: No clubbing, cyanosis, or edema. No joint tenderness, effusion, or edema noted. BACK: Nontender without deformity or crepitance. No flank tenderness. NEURO: AOx3. SKIN: No rash or erythema. Initial Vital Signs Initial Vital Signs: Vital Signs Temperature 97.3 F L 09/13/18 09:17 Pulse Rate 58 L 09/13/18 09:17 Respiratory Rate 16 09/13/18 09:17 Blood Pressure 123/77 09/13/18 09:17 Pulse Oximetry 96 09/13/18 09:17 Course Orders Ordered: ED Orders 09/13/18 09:15 Urine Culture Stat Urine Microscopic Stat 09/13/18 09:22 XR acute abdomen series Stat 09/13/18 09:23 Complete Blood Count AUTO DIFF Stat Comprehensive Metabolic Panel Stat Lipase Stat 09/13/18 10:08 CT abdomen pelvis w con Stat Discontinued Medications Sodium Chloride (Normal Saline 0.9%) 1,000 mls @ 150 mls/hr IV CONT SERGE Last Infusion: 09/13/18 12:06 Dose: 0 mls/hr Admin: 09/13/18 09:35 Dose: 150 mls/hr Consultations Consultation #1: discussion with urology at regarding UTI in presence of 6mm Right Sided UVJ. Given lack of R sided symptoms, absence of systemic findings, and no hydro ureter or hydronephrosis on imaging this is unlikely to be playing a specific role in today's presentation. Urology and I sure the opinion that a appropriate return precautions are indicated in this patient but no urologic procedure or intervention is indicated at this time Vital Signs - 8 hr 09/13/18 09:17 09/13/18 09:55 09/13/18 10:57 Temperature 97.3 F L Pulse Rate 58 L 51 L 50 L Respiratory Rate 16 14 13 Blood Pressure 123/77 Blood Pressure [Right Arm] 111/60 106/61 Pulse Oximetry 96 93 92 09/13/18 11:52 Temperature Pulse Rate 50 L Respiratory Rate 13 Blood Pressure Blood Pressure [Right Arm] 121/58 L Pulse Oximetry 95 MDM - Abdominal Pain Lab Data Result diagrams: 09/13/18 09:23 09/13/18 09:23 Lab Results 09/13/18 09/13/18 09/13/18 Range/Units 09:15 09:23 09:23 WBC 7.5 (4.5-11.0) X10^3/uL RBC 4.05 L (4.5-5.9) X10^6/uL Hgb 13.2 L (13.5-17.5) g/dL Hct 40.0 L (41-53) % MCV 98.7 (80-100) fL MCH 32.6 (26-34) PG MCHC 33.0 (30-36) % RDW 15.6 H (11.6-14.8) % Plt Count 141 L (150-400) X10^3/uL Neut % (Auto) 64.2 (50-75) % Lymph % (Auto) 22.5 L (25-40) % [place] % (Auto) 9.5 (3-14) % Eos % (Auto) 3.0 (2-4) % Baso % (Auto) 0.8 (0-2) % Neut # (Auto) 4800 (9047-3626) /uL Lymph # (Auto) 1700 (3297-4981) /uL [place] # (Auto) 700 (0-900) /uL Eos # (Auto) 200 (0-450) /uL Baso # (Auto) 100 (0-100) /uL Sodium 138 (137-145) mmol/L Potassium 4.1 (3.4-5.1) mmol/L Chloride 104 (98-107) mmol/L Carbon Dioxide 26 (22-32) mmol/L BUN 19 (9-20) mg/dL Creatinine 0.70 (0.66-1.25) mg/dL Estimated GFR > 60.0 (>60) mL/min BUN/Creatinine Ratio 27.1 H (6-22) Glucose 107 (80-110) mg/dL Calcium 9.4 (8.4-10.2) mg/dL Total Bilirubin 1.4 H (0.2-1.3) mg/dL AST 26 (17-59) IU/L ALT 22 (21-72) IU/L Alkaline Phosphatase 99 (38-126) U/L Total Protein 7.6 (6.3-8.2) g/dL Albumin 4.2 (3.5-5.0) g/dL Globulin 3.4 (1.7-4.1) g/dL Albumin/Globulin Ratio 1.2 (1.0-2.8) Lipase 37 (23-300) U/L Urine RBC 1-5/hpf (0-5/HPF) Urine WBC 10-30/hpf H (0-5/HPF) Ur Squamous Epith Cells 1-5 /hpf (0-5/HPF) Amorphous Sediment 1+ Urine Bacteria Moderate (10-30) H (None) Ur Culture Indicated? Specimen cultured Point of care testing: Urine Dip Bedside Urine Glucose Negative Bedside Urine Bilirubin + 1 Bedside Urine Ketone - Negative Urine Specific [place] 1.020 Bedside Urine Occult Blood +/- Bedside Urine pH 6.0 Bedside Urine Protein + 30 Bedside Urine Urobilinogen +/- 1mg Bedside Urine Nitrite - Negative Bedside Urine Leukocytes + 70 Esterase Imaging Data Abdominal x-ray: Radiologist's impression: [address] [address] XRay Report Signed Patient: Yuri Kennedy RMR#: [id number] : 6Acct:[id number] Age/Sex: 83 / MDate of Service: 09/13/18 Loc: ED Accession Number: [id number] Procedure: XR acute abdomen series Ordering Provider: Aj Baldwin D.O. PROCEDURE: XR ACUTE ABDOMEN SERIES INDICATIONS: Abdominal pain, LLQ TECHNIQUE: One view chest and two views of the abdomen were acquired. COMPARISON: [facility], CR, XR CHEST 2V, 07/29/2018, 11:24. FINDINGS: Surgical changes and devices: Patient is status post median sternotomy. Cardiac pacer is unchanged. Chest: Lungs are clear. Heart size is normal. No pleural effusions. No pneumoperitoneum. Abdomen: Bowel gas pattern is normal. No suspicious calcifications. Visualized solid organ contours appear normal. Bones: No suspicious bony lesions. IMPRESSION: No acute cardiopulmonary findings. Dictated by: Maryellen Moreau M.D. on 09/13/2018 at 8:51 Approved by: Maryellen Moreau M.D. on 09/13/2018 at 8:51 CT scan - abdomen: Radiologist's impression: [address] [address] [address] Scan Report Signed Patient: Yuri Kennedy RMR#: [id number] : 6Acct:[id number] Age/Sex: 83 / MDate of Service: 09/13/18 Loc: ED Accession Number: [id number] Procedure: CT abdomen pelvis w con Ordering Provider: Aj Baldwin D.O. PROCEDURE: CT ABDOMEN PELVIS W CON INDICATIONS: severe LLQ pain, UTI, stone? tics? TECHNIQUE: After the administration of intravenous contrast, 5 mm thick sections acquired from the diaphragm to the symphysis. 5 mm coronal and sagittal reformats were acquired. For radiation dose reduction, the following was used: automated exposure control, adjustment of mA and/or kV according to patient size. COMPARISON: None. FINDINGS: Image quality: Excellent. ABDOMEN: Lung bases: Platelike atelectasis is present at the right lung base. The lung bases are otherwise clear. The heart is mildly enlarged. No pericardial effusion. Heart size is normal. Solid organs: Liver is normal in size and enhancement. Gallbladder is unremarkable. Biliary system is non dilated. Pancreas enhances normally. Spleen is normal in size and enhancement. No adrenal nodules. Low-density cystic lesions are present within the right kidney suggesting the presence of simple renal cysts. Cortical scarring and calcification is present within the midpole of the right kidney suggesting prior infection or infarction. There are bilateral nonobstructing renal calculi. The largest stone on the right measures 4 mm in diameter. The largest stone on the left is in the lower pole and has a staghorn appearance and measures 1.4 cm in diameter. 2 other staghorn calculi are present within the left kidney greater the 1 cm diameter. Nonobstructing calculi are also present within the dilated left renal pelvis. The bilateral ureters are nondilated. A 6 mm calculus is present within the distal right ureter at the ureterovesicular junction (series 2, image 76). No left ureteral calculi visualized. Peritoneum and bowel: Bowel loops demonstrate normal wall thickness and ca liber. There is a small gas filled duodenal diverticulum at the third portion of the duodenum. The appendix is thin walled and gas filled. Multiple small appendicoliths are also present within the appendix. There extensive sigmoid colon diverticula outpouchings. Focal pericolonic fat stranding is present within the superior aspect of the descending colon which may represent mild inflammatory changes. No free fluid or air. Nodes and vessels: No retroperitoneal or mesenteric adenopathy by size criteria. Dense atheromatous calcifications are present throughout the abdominal aorta. The lateral diameter of the abdominal aorta measures 3.2 cm in maximum diameter. Miscellaneous: No ventral hernias. PELVIS: Genitourinary: The bladder is partially fluid-filled. Multiple bladder diverticula are noted within the posterior bladder and along the lateral bell. No bladder calc karel. Miscellaneous: No inguinal adenopathy. There is a small right and a moderate left fat-containing inguinal hernia. Bones: No suspicious bony lesions. No vertebral body compression fractures. IMPRESSION: 1. Bilateral nonobstructing nephrolithiasis. Multiple calculi within the left k [place]ney has a staghorn appearance and measure greater than 1 cm diameter. 2. Mild to moderate left hydronephrosis and a markedly dilated left renal pelvis without hydroureter suggesting ureteropelvic obstruction. This does not appear to be secondary to an obstructing calculus within the pelvis. 3. Distal right ureterolithiasis at the ureterovesicular junction without right hydronephrosis or hydroureter. 4. Extensive sigmoid colon diverticulosis and findings suggestive of a early nonperforated acute diverticulitis. 5. Normal appendix. The findings were discussed with Dr. Baldwin at 9:49 AM on . 6. 3.2 cm diameter abdominal aortic aneurysm. Dictated by: Maryellen Moreau M.D. on 09/13/2018 at 9:37 Approved by: Maryellen Moreau M.D. on 09/13/2018 at 9:50 MDM Narrative Medical decision making narrative: Multiple etiologies for patient's symptoms considered including: [Diverticulitis is the most likely diagnosis given history, physical and imaging, kidney stone on the left considered but thought l ess likely given lack of hematuria and findings on imaging.] Patient's symptoms improved or duration of stay with above-stated therapies. Findings and discharge diagnosis discussed with patient/family followed by verbalization of understanding Return precautions discussed with patient/family whom verbalize understanding. Discharge Plan Departure Patient Disposition: Home Clinical Impression: Diverticulitis, Acute UTI Discharge Date/Time: 09/13/18 12:02 Interventions: ED Discharge Assessment Last Done: 09/13/18 12:02 Instructions: DI for Diverticulitis Activity Restrictions/Additional Instructions: *You have been diagnosed with [acute diverticulitis, urinary tract infection] *What to do: *Take medications as directed *Follow up with your primary care provider in 2-3 days, call for an appointment. Let them know you were seen in the Emergency Department and that we ask that you be seen in follow up *Return to ER if you should have any new, worsening or concerning symptoms, such as [fever, shaking chills, right flank pain, vomiting or other bothersome symptoms] Prescriptions: New hydrocodone-acetaminophen 5-325 mg tablet 1 tab PO Q4-6H PRN (Reason: pain) Qty: 10 RF: 0 ondansetron HCl [Zofran] 4 mg tablet 4 mg PO Q6-8H PRN (Reason: nausea and vomiting) Qty: 20 RF: 0 metronidazole [Flagyl] 500 mg tablet 500 mg PO TID Qty: 30 RF: 0 ciprofloxacin HCl 500 mg tablet 500 mg PO Q12H Qty: 20 RF: 0 No Action carvedilol [Coreg] 6.25 MG tablet 6.25 mg PO BID Qty: 0 RF: 0 losartan 50 MG tablet 50 mg PO QPM Qty: 0 RF: 0 sotalol [Sotalol AF] 80 MG tablet 80 mg PO BID Qty: 0 RF: 0 clopidogrel [Plavix] 75 MG tablet 75 mg PO QDAY Qty: 0 RF: 0 simvastatin 20 MG tablet 20 mg PO QPM Qty: 0 RF: 0 famotidine [Pepcid] 20 MG tablet 20 mg PO QDAYP PRNQty: 0 RF: 0 aspirin 325 MG tablet,delayed release (DR/EC) 325 mg PO QDAY Qty: 0 RF: 0 diclofenac sodium [Solaraze] 3 % gel 1 jose de jesus Topical PRN PRNQty: 0 RF: 0 isosorbide mononitrate 30 MG tablet extended release 24 hr 30 mg PO QPM Qty: 0 RF: 0 nitroglycerin [Nitrostat] 0.4 MG tablet, sublingual 0.4 mg Sublingual PRN PRNQty: 0 RF: 0 fluticasone propionate [Flonase Allergy Relief] 9.9 ML spray,suspension 1 spray Intranasal QPM Qty: 0 RF: 0 furosemide [Lasix] 20 MG tablet 20 mg PO QDAY 3 Days Qty: 0 RF: 0 albuterol sulfate 90 mcg/actuation HFA aerosol inhaler 2 puff INHALATION Q2-4H Qty: 8.5 RF: 0
[2018-09-13 09:49] LABS: Alanine Aminotransferase 22 IU/L (21-72); Albumin 4.2 g/dL (3.5-5.0); Albumin Globulin Ratio 1.2 (1.0-2.8); Alkaline Phosphatase 99 U/L (38-126); Aspartate Aminotransferase 26 IU/L (17-59); BUN Creatinine Ratio 27.1 (6-22); Bilirubin Total 1.4 mg/dL (0.2-1.3); Blood Urea Nitrogen 19 mg/dL (9-20); Calcium 9.4 mg/dL (8.4-10.2); Carbon Dioxide 26 mmol/L (22-32); Chloride 104 mmol/L (98-107); Estimated Glomerular Filt Rate > 60.0 mL/min (>60); Globulin 3.4 g/dL (1.7-4.1); Glucose 107 mg/dL (80-110); HEMOLYSIS < 15 (0-50); Lipase 37 U/L (23-300); Potassium 4.1 mmol/L (3.4-5.1); Sodium 138 mmol/L (137-145); Total Protein 7.6 g/dL (6.3-8.2)
[2018-09-13 09:51] LABS: RBC Urine 1-5/HPF (0-5/HPF)
[2018-09-13 09:52] LABS: Amorphous Sediment Urine 1+; Bacteria Urine Moderate (10-30); Culture Indicated Urine Specimen Cultured; Squamous Epithelial Cell Urine 1-5 /HPF (0-5/HPF); WBC Urine 10-30/HPF (0-5/HPF)
[2018-09-13 09:55] VITALS: BP 111/60; PULSE 51; RESP 14; O2SAT 93
--- NOTE | 2018-09-13 10:08 | DI.CT.S_ITS ---
PROCEDURE: CT ABDOMEN PELVIS W CON INDICATIONS: severe LLQ pain, UTI, stone? tics? TECHNIQUE: After the administration of intravenous contrast, 5 mm thick sections acquired from the diaphragm to the symphysis. 5 mm coronal and sagittal reformats were acquired. For radiation dose reduction, the following was used: automated exposure control, adjustment of mA and/or kV according to patient size. COMPARISON: None. FINDINGS: Image quality: Excellent. ABDOMEN: Lung bases: Platelike atelectasis is present at the right lung base. The lung bases are otherwise clear. The heart is mildly enlarged. No pericardial effusion. Heart size is normal. Solid organs: Liver is normal in size and enhancement. Gallbladder is unremarkable. Biliary system is non dilated. Pancreas enhances normally. Spleen is normal in size and enhancement. No adrenal nodules. Low-density cystic lesions are present within the right kidney suggesting the presence of simple renal cysts. Cortical scarring and calcification is present within the midpole of the right kidney suggesting prior infection or infarction. There are bilateral nonobstructing renal calculi. The largest stone on the right measures 4 mm in diameter. The largest stone on the left is in the lower pole and has a staghorn appearance and measures 1.4 cm in diameter. 2 other staghorn calculi are present within the left kidney greater the 1 cm diameter. Nonobstructing calculi are also present within the dilated left renal pelvis. The bilateral ureters are nondilated. A 6 mm calculus is present within the distal right ureter at the ureterovesicular junction (series 2, image 76). No left ureteral calculi visualized. Peritoneum and bowel: Bowel loops demonstrate normal wall thickness and caliber. There is a small gas filled duodenal diverticulum at the third portion of the duodenum. The appendix is thin walled and gas filled. Multiple small appendicoliths are also present within the appendix. There extensive sigmoid colon diverticula outpouchings. Focal pericolonic fat stranding is present within the superior aspect of the descending colon which may represent mild inflammatory changes. No free fluid or air. Nodes and vessels: No retroperitoneal or mesenteric adenopathy by size criteria. Dense atheromatous calcifications are present throughout the abdominal aorta. The lateral diameter of the abdominal aorta measures 3.2 cm in maximum diameter. Miscellaneous: No ventral hernias. PELVIS: Genitourinary: The bladder is partially fluid-filled. Multiple bladder diverticula are noted within the posterior bladder and along the lateral bell. No bladder calculi. Miscellaneous: No inguinal adenopathy. There is a small right and a moderate left fat-containing inguinal hernia. Bones: No suspicious bony lesions. No vertebral body compression fractures. IMPRESSION: 1. Bilateral nonobstructing nephrolithiasis. Multiple calculi within the left kidney has a staghorn appearance and measure greater than 1 cm diameter. 2. Mild to moderate left hydronephrosis and a markedly dilated left renal pelvis without hydroureter suggesting ureteropelvic obstruction. This does not appear to be secondary to an obstructing calculus within the pelvis. 3. Distal right ureterolithiasis at the ureterovesicular junction without right hydronephrosis or hydroureter. 4. Extensive sigmoid colon diverticulosis and findings suggestive of a early nonperforated acute diverticulitis. 5. Normal appendix. The findings were discussed with Dr. Baldwin at 9:49 AM on . 6. 3.2 cm diameter abdominal aortic aneurysm. Dictated by: Maryellen Moreau M.D. on 09/13/2018 at 9:37 Approved by: Maryellen Moreau M.D. on 09/13/2018 at 9:50
[2018-09-13 10:57] VITALS: BP 106/61; PULSE 50; RESP 13; O2SAT 92
[2018-09-13 11:52] VITALS: BP 121/58; PULSE 50; RESP 13; O2SAT 95
== END 2018-09-13 12:02 | disposition home or self-care (01) ==
PROVIDERS: Emergency Provider Emergency Medicine
DX: K57.92 Diverticulitis of intestine, part unspecified, without perforation or abscess without bleeding (principal); N39.0 Urinary tract infection, site not specified
CPT/HCPCS: 36591; 74022; 74177; 80053; 81003; 81015; 83690; 85025; 87077; 87086; 87186; 96360; 96361; 99283; 99284; Q9967